=== PATIENT | male | born 1970 | race Caucasian/White ===

== ENCOUNTER 2016-10-07 13:18 | Emergency (ER) | payer OTHER ==
[2016-10-07 15:39] LABS: HEMOGLOBIN 16.1 gm/dl (14.0-17.5); RED BLOOD COUNT 4.95 M/UL (4.20-5.50)
[2016-10-07 15:54] LABS: BUN/CREATININE RATIO 18 (0-10)
== END 2016-10-07 19:15 | disposition home or self-care (01) ==
LOC: ER1 13:18
PROVIDERS: Emergency Medicine
DX: M54.5 Low back pain (principal); M25.552 Pain in left hip; N50.819 Testicular pain, unspecified; I10 Essential (primary) hypertension; Z79.899 Other long term (current) drug therapy
CPT/HCPCS: 36415; 72131; 73502; 76870; 80053; 81001; 83690; 85025; 87086; 99284

== ENCOUNTER → 2021-07-09 | Outpatient (CLI) | payer OTHER ==
[~2021-07-09] MED LIST: BENTYL 20MG TAB20 MG PO; IBUPROFEN200 MG PO; LISINOPRIL20 MG PO; LODINE CAP 300300 MG PO; ZOFRAN ODT 4 MG4 MG PO
[2021-07-09 10:05] LABS: BUN/CREATININE RATIO 16 (0-10)
== END ==
LOC: OPSV2 08:41
PROVIDERS: Anesthesiology
DX: Z01.818 Encounter for other preprocedural examination (principal); I44.60 Unspecified fascicular block; R94.31 Abnormal electrocardiogram [ECG] [EKG]
CPT/HCPCS: 80048; 93005

== ENCOUNTER → 2021-09-27 | Outpatient (CLI) | payer OTHER | LOC: HEART 5 08-28 08:00 → ECHO 12:30 | DX: R07.9 Chest pain, unspecified (principal); R06.02 Shortness of breath; I51.89 Other ill-defined heart diseases | CPT/HCPCS: ECHO; 93306 ==

== ENCOUNTER 2022-01-01 22:33 | Emergency (ER) | payer OTHER ==
[2022-01-01 23:05] LABS: HEMOGLOBIN 16.9 gm/dl (14.0-17.5); RED BLOOD COUNT 5.11 M/UL (4.20-5.50); WHITE BLOOD COUNT 11.6 K/UL (4.5-11.0)
[2022-01-01 23:33] LABS: BUN/CREATININE RATIO 16 (0-10)
== END 2022-01-02 03:25 | disposition home or self-care (01) ==
LOC: ER1 22:33
PROVIDERS: Family Medicine
DX: R07.89 Other chest pain (principal); I10 Essential (primary) hypertension; F17.200 Nicotine dependence, unspecified, uncomplicated
CPT/HCPCS: 71045; 80053; 82550; 82553; 84484; 85025; 93005; 99285